=== PATIENT | female | born 2000 | race American Indian/Alaskan Native ===

== ENCOUNTER 2023-06-09 19:44 | Emergency (ER) | payer SELFPAY ==
--- OUTSIDE RECORDS SUMMARY | 2023-06-09 19:46 | XMS REPORT | Continuity of Care Document ---
:2000 Author Organization [facility] t Address [address] [place] [address] [place] [address] Care Team Providers Name Role Phone PCP, PATIENT DOES NOT HAVE A Primary Care Physician Unavaila GARO Morillo Attending Clinician Unavailable ELIZABETH PICHARDO Attending Clinician Unavailable MONA MANN Attending Clinician Unavailable MICHAEL BROWN Attending Clinician Unavailable UZMA SPRINGER Attending Clinician Unavailable PRASHANT UNDERWOOD Attending Clinician Unavailable DEV BADILLO Attending Clinician Unavailable West WILLIAMSON Jairo S Attending Clinician JAIRO DODSON S Attending Clinician Unavailable JOON BARONE Attending Clinician Unavailable ANAND JEFFERSON Attending Clinician Unavailable Anand Jefferson RN Attending Clinician Merle Myles Attending Clinician GEORGIANA ALVARADO Attending Clinician Unavailable GARO WYNN Admitting Clinician Unavailable ELIZABETH PICHARDO Admitting Clinician Unavailable MICHAEL BROWN Admitting Clinician Unavailable DEV BADILLO Admitting Clinician Unavailable NIKHIL DODSONYA S Admitting Clinician Unavailable MERLE ROB Admitting Clinician Unavailable Payers Payer Name Policy Type Policy Number Effective Date Expiration Date S ource Self Pay P [id number] 2020 00:00:00 Problems Condition Condition Condition Status Onset Resolution Last Treating Co mments Source Name Details Category Date Date Treatment Clinician Date No known No known Disease Unive rs active active ity of problems problems [facility] Allergies, Adverse Reactions, Alerts Allergy Allergy Status Severity Reaction(s) Onset Inactive Treating Comm ents Source Name Type Date Date Clinician NO KNOWN Drug Active Univers ALLERGIE Class ity of S [facility] Family History Family Member Diagnosis Comments Start Date Stop Date Source Maternal grandfather Diabetes [facility] Paternal grandmother Hypertension [facility] Social History Social Habit Start Date Stop Date Quantity Comments Source Sexual [facility] Exposure to Not sure University SARS-CoV-2 (event) [facility] Alcohol intake 2021-02-25 2021-02-25 Current Taoism 00:00:00 00:00:00 non-drinker of Hospital alcohol (finding) History of Social 2021-02-25 2021-02-[address] function 00:00:00 00:00:00 Hospital Tobacco use and 2018-11-07 2018-11-07 Smokeless Taoism exposure 00:00:00 00:00:00 tobacco non-user Hospital Sex Assigned At [birth year] Tao[facility] 00:00:00 00:00:00 Hospital Smoking Status Start Date Stop Date Source Unknown if [facility] Never smoked tobacco [facility] Medications Ordered Filled Start Stop Current Ordering Indication Dosage Frequency Signature Comments Components Source Medication Medication Date Date Medication? Clinician (SIG) Name Name Nitrofurant 2020-08 Yes [id number] 100mg Take 1 Univers oin&Nit. 2-28 capsule by ity o f [place] 00:00: mouth 2 [place] (MACROBID) 00 (two) Medical 100 mg times Branch capsule daily. meloxicam Yes 15mg Q24H Take 1 Method i (MOBIC) 15 4-16 tablet (15 st mg tablet 00:00: mg total) Hos jeni 00 by mouth l daily as needed for moderate pain. Vital Signs Vital Name Observation Time Observation Value Comments Source Systolic blood 2021-08-06 03:47:00 109 mm[Hg] Univer sity of pressure [facility] Diastolic blood 2021-08-06 03:47:00 71 mm[Hg] Unive rsity of [facility] Branch Heart rate 2021-08-06 03:47:00 76 /min [facility] Respiratory rate 2021-08-06 03:47:00 16 /min [facility] Oxygen saturation in 2021-08-06 03:47:00 100 /min [facility] Arterial blood by [facility] Pulse oximetry Branch Body temperature 2021-08-05 23:33:00 37.11 Esther [facility] Body weight 2021-08-05 23:33:00 80.74 kg [facility] Procedures Procedure Date / Time Performing Clinician Source Performed ABORH CONFIRMATION (LAB 2021-08-06 03:09:00 Jairo Dodson [facility] ONLY) [facility] URINALYSIS 2021-08-06 02:03:00 Jairo Dodson [facility] COMP. METABOLIC PANEL 2021-08-06 01:57:00 Jairo Dodson [facility] ([id number]) [facility] TOTAL BETA HCG ASSAY 2021-08-06 01:57:00 Jairo Dodson [facility] CBC WITH DIFF 2021-08-06 01:57:00 Jairo Dodson [facility] HB ABO GROUPING 2021-08-06 01:57:00 Jairo Dodson [facility] US FIRST 2021-08-06 01:34:58 Jairo Dodson [facility] TRIMESTER LESS THAN 14 Medical B ranch WEEKS CONSENT/REFUSAL FOR 2021-08-05 23:31:53 [facility], [facility] NOTICE OF PRIVACY 2021-08-05 23:31:10 Doctor Unassigned, No Univ [facility] PRACTICES Name [facility] Plan of Care Planned Activity Planned Date Details Comments Source Future Scheduled 2023-06-05 Screening for [facility] Test 00:32:11 Chlamydia trachomatis (procedure) [code = 000612423] Future Scheduled 2023-06-05 INFLUENZA VACCINE [facility] Test 00:32:11 (#1) [code = INFLUENZA VACCINE (#1)] Future Scheduled 2023-06-05 COVID-19 VACCINE (#1) [facility] Test 00:32:11 [code = COVID-19 VACCINE (#1)] Future Scheduled 2023-06-05 Hepatitis C screening [facility] Test 00:32:11 (procedure) [code = 470061936] Encounters Start End Encounter Admission Attending Care Care Encounter Source Date/Time Date/Time Type Type Clinicians Facility Department ID 2022-07-24 Outpatient D Julián [id number] [place] 07:38:23 [id number] [facility] 2022-07-20 Outpatient D D [id number] 09:03:19 [id number] [facility] 2021-11-17 Outpatient [facility] [id number] [place] 05:08:49 [facility] 2021-05-25 Outpatient [facility] [id number] [place] 11:31:37 [id number] [facility] 2021-05-25 Outpatient [facility] [id number] [place] 11:31:21 [id number] [facility] 2023-02-11 2023-02-11 Outpatient CARRI-SA D D [id number] [place] 10:10:29 [facility]23[facility] 2022[facility]18 Outpatient KYLEE Julián D [id number] [place] 11:31:00 14:33:02 ELIZABETH [facility] 2022-10-21 2022-10-21 Outpatient JOHNATHAN Julián D [id number] [place] 00:00:00 00:00:00 MONA [facility] 2022-07-24 2022-07-24 Outpatient STEPHANIE Julián D [id number] [place] 05:38:37 05:38:37 MICHAEL [facility] 2022-07-20 2022-07-20 Outpatient RACHEAL Julián D [id number] [place] 07:01:52 07:01:52 UZMA [facility] 2022-07-20 2022-07-20 Outpatient D D [id number] [place] 00:00:00 00:00:00 [facility] 2021-10-24 2021-10-24 Outpatient KJ Julián D [id number] [place] 00:00:00 00:00:00 PRASHANT [facility] 2021-08-06 2021-08-06 Outpatient CRYSTAL BADILLO Julián [id number] [place] 00:00:00 00:00:00 [facility] 2021-08-05 2021-08-05 [facility] [id number] Univers 17:35:00 21:56:00 Jairo Dove [place] [id number] i [facility] [id number] [facility] [id number] 2021-08-05 2021-08-05 Emergency [facility] [id number] Univers 17:35:00 21:56:00 JAIRO arango [facility] 2021-02-25 2021-02-25 Outpatient LIZABETH [facility] [id number] [place] 00:00:00 00:00:[address] 2021-02-25 2021-02-25 Outpatient LIZABETH [facility] [id number] [place] 00:00:00 00:00:[address] 2021-02-19 2021-02-19 Outpatient ANAND JEFFERSON Julián D [id number] [place] 07:23:16 10:22:56 [facility] 2021-02-19 2021-02-19 Office LiAnand [facility] [id number] 09:23:16 09:38:16 Visit MARTHA [id number] .[id number] 2021-02-03 2021-02-03 Outpatient CRYSTAL Julián [id number] [place] 00:00:00 00:00:00 [facility] 2021-01-29 2021-01-29 Office DEEPA Rob [id number] 11:36:23 12:06:23 Visit Merle THOMAS [id number] .[id number] 2021-01-29 2021-01-29 Outpatient CRYSTAL ROB Julián [id number] [place] 09:36:23 09:36:23 MERLE Canales Depart ent 2021-01-29 2021-01-29 Telemedici Alden DEEPA [id number] 08:22:26 08:52:26 ne Visit Dev THOMAS [id number] .[id number] 2021-01-29 2021-01-29 Outpatient CRYSTAL BADILLO [facility] [id number] [place] 06:22:26 06:22:26 [facility] 2020-11-22 2020-11-22 Outpatient LIZABETH [facility] [id number] [place] 00:00:00 00:00:[address] 2020-11-22 2020-11-22 Outpatient JOON BARONE [facility] [id number] [place] 00:00:00 00:00:[address] 2020-10-01 2020-10-01 Emergency [facility] [id number] [place] 00:00:00 00:00:00 GEORGIANA [address] Results Test Description Test Time Test Comments Results Result Comments Source TOTAL [facility] 2021-08-06 03:30:14 Test Item Value Reference Range Interpretation Comme nts BETA HCG (test code = See_Comment [Auto mated message] The [id number]) system which ge nerated this result transmit freida reference range : Non- fe male and male patients: <5 mIU/mL. The reference r armin was not used to interpr et this result as charles l/abnormal. ROMEO (test code = ROMEO) Gestational Age ?Range (mIU/mL) 1-10 ?Weeks ?[id number] Weeks ?29431-35822411-70 Weeks ?4431-39566741-31 Weeks ?5461-915490 Biotin has been reported to cause a negative bias, interpret results relative to patient's use of biotin. [facility] Only[facility]2021-08-06 03:26:14 Test Item Value Reference Range Interpretation Comments ABO & RH (test code O Positive Performe d at [facility] = 20) Laboratory Serv [facility] [address] [place] [id number] Free: [phone] A No. [id number] [facility]. METABOLIC PANEL (51469)2021-08-06 02:49:57 Test Item Value Reference Range Interpretation Comments NA (test code = 136 mmol/L 135-145 2187434525) K (test code = 4.0 mmol/L 3.5-5.0 0811679464) CL (test code = 100 mmol/L 98-108 6247345466) CO2 TOTAL (test code = 26 mmol/L 23-31 2066567127) AGAP (test code = 2-16 9781939199) BUN (test code = 6 mg/dL 7-23 L 3213326773) GLUCOSE (test code = 114 mg/dL 70-110 H 1324998680) CREATININE (test code = 0.53 mg/dL 0.50-1.04 3958533802) TOTAL BILI (test code = 0.3 mg/dL 0.1-1.4 9532549376) CALCIUM (test code = 9.0 mg/dL 8.6-10.6 5648976111) T PROTEIN (test code = 7.6 g/dL 6.3-8.2 3160195613) ALBUMIN (test code = 4.3 g/dL 3.5-5.0 3579256627) ALK PHOS (test code = 74 U/L 34-122 4775697525) ALTv (test code = 15 U/L 5-35 1742-6) AST(SGOT) (test code = 25 U/L 13-40 1819938873) eGFR (test code = mL/min/1.73m2 6521611555) ROMEO (test code = ROMEO) Association of Glomerular Filtration Rate (GFR) and Staging of Kidney Disease* + --+ --+ ------+| GFR (mL/min/1.73 m2) ?| With Kidney Damage ?| ?Without Kidney Damage+ --------+ --------+ +| ?>90 ?| ?Stage one ?| ? Normal ?+ ---+ ---+ -------+| ?60-89 ?| ?Stage two ?| ? Decreased GFR ? + --+ --+ ------+| ?30-59 ?| ?Stage three ?| ? Stage three ? + --+ --+ ------+| ?15-29 ?| ?Stage four ? | ? Stage four ?+ ---+ ---+ -------+| ?<15 (or dialysis) ? ?| ?Stage five ? | ? Stage five ?+ ---+ ---+ -------+ *Each stage assumes the associated GFR level has been in effect for at least three months. ?Stages 1 to 5, with or without kidney disease, indicate chronic kidney disease. Notes: Determination of stages one and two (with eGFR >59mL/min/1.73 m2) requires estimation of kidney damage for at least three months as defined by structural or functional abnormalities of the kidney, manifested by either:Pathological abnormalities or Markers of kidney damage (including abnormalities in the composition of the blood or urine or abnormalities in imaging tests). Lab Interpretation Abnormal (test code = 14326-1) [facility] and Screen - ONCE [id number] 02:40:13 Test Item Value Reference Range Interpretation Comments ABO & RH (test code O Positive Performe d at [facility] = 20) Laboratory Serv [facility] [place] [address] Free: [phone] A No. [id number] IAT (test code = Negative Performed a t [facility] 1185) Laboratory Serv [facility] [place] [address] Free: [phone] A No. [id number] [facility] CenterCBC WITH [id number] 02:13:34 Test Item Value Reference Range Interpretation Comments WBC (test code = See_Comment [Automated 9280-2) message] The sy stem which generated this result transmitted reference range : 4.50 - 13.50 10*3/?L. The reference range was not used to interpret this result as normal/abnormal . RBC (test code = See_Comment [Automated 384-5) message] The sy stem which generated this result transmitted reference range : 4.10 - 5.10 10*6/?L. The reference range was not used to interpret this result as normal/abnormal . HGB (test code = 13.4 g/dL 12.0-16.0 718-7) HCT (test code = 38.6 % 36.0-45.0 4544-3) MCV (test code = 85.6 fL 78.0-95.0 787-2) MCH (test code = 29.7 pg 26.0-32.0 785-6) MCHC (test code = 34.7 g/dL 32.0-36.0 786-4) RDW-SD (test code = 38.1 fL 38.5-49.0 L 89683-0) RDW-CV (test code = 12.2 % 11.5-14.0 788-0) PLT (test code = See_Comment [Automated 777-3) message] The sy stem which generated this result transmitted reference range : 135 - 361 10*3/ ?L. The reference r armin was not used to interpret this result as normal/abnormal . MPV (test code = 10.2 fL 9.4-13.3 72112-1) NRBC/100 WBC (test See_Comment [Automat ed code = 2450527225) message] The system which generated this result transmitted reference range : 0.0 - 10.0 /100 WBCs. The refer ence range was not u sed to interpret th is result as normal/abnormal . NRBC x10^3 (test code <0.01 See_Comment [Auto mated = 8736345879) message] The s ystem which generated this result transmitted reference range : 10*3/?L. The reference range was not used to interpret this result as normal/abnormal . GRAN MAT (NEUT) % 64.0 % (test code = 770-8) IMM GRAN % (test code 0.60 % = 7961175758) LYMPH % (test code = 23.9 % 736-9) MONO % (test code = 6.4 % 5905-5) EOS % (test code = 4.5 % 713-8) BASO % (test code = 0.6 % 706-2) GRAN MAT x10^3(ANC) 8.02 10*3/uL 1.50-10.30 (test code = 9660803655) IMM GRAN x10^3 (test 0.07 10*3/uL 0.00-0.06 H code = 0557346927) LYMPH x10^3 (test code 2.99 10*3/uL 0.70-7.40 = 731-0) MONO x10^3 (test code 0.80 10*3/uL 0.00-0.50 H = 742-7) EOS x10^3 (test code = 0.56 10*3/uL 0.00-0.40 H 711-2) BASO x10^3 (test code 0.08 10*3/uL 0.00-0.10 = 704-7) Lab Interpretation Abnormal (test code = 40820-6) [facility]"
[2023-06-09 21:13] LABS: Urine Bacteria None Seen /HPF (<20); Urine Bilirubin NEGATIVE (Negative); Urine Blood Negative (Negative); Urine Clarity Turbid (Clear); Urine Color Light-Yellow (Yellow); Urine Glucose NEGATIVE (Negative); Urine Mucus Slight /HPF (None Seen); Urine Protein TRACE (Negative); Urine RBC <5 /HPF (None Seen); Urine Urobilinogen Normal (Normal)
--- NOTE | 2023-06-09 22:05 | ER ---
Nurse's Notes [facility] Name: Meg Dobson Age: 22 yrs Sex: Female : 2000 Arrival Date: 06/09/2023 Time: 19:44 Bed 12 Private MD: Diagnosis: Rash and other nonspecific skin eruption;Vaginal discharge Presentation: 06/09 20:13 Chief complaint: Patient states: I have a rash that started under my breast and now I ha1 have it in other parts of my body including my vaginal area. Also, I have a vaginal discharge. Coronavirus screen: Vaccine status: Patient reports being unvaccinated. Ebola Screen: No symptoms or risks identified at this time. Initial Sepsis Screen: Does the patient meet any 2 criteria? No. Patient's initial sepsis screen is negative. Does the patient have a suspected source of infection? No. Patient's initial sepsis screen is negative. Risk Assessment: Do you want to hurt yourself or someone else? Patient reports no desire to harm self or others. Onset of symptoms was May 23, 2023. 20:13 Method Of Arrival: Ambulatory ha1 20:13 Acuity: JENNIFER 4 ha1 Triage Assessment: 20:19 General: Appears comfortable, Behavior is calm, cooperative. Pain: Denies pain. Neuro: ha1 Level of Consciousness is awake, alert, obeys commands, Oriented to person, place, time, situation. Cardiovascular: Patient's skin is warm and dry. Respiratory: Airway is patent Respiratory effort is even, unlabored, Respiratory pattern is regular, symmetrical. : Reports vaginal itching. Derm: Skin is pink, warm \T\ dry. 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 - Social history:: Smoking status: Patient denies any tobacco usage or history of. Screenin:49 [facility] ED Fall Risk Assessment (Adult) History of falling in the last 3 months, ap3 including since admission No falls in past 3 months (0 pts). Abuse screen: Denies threats or abuse. Nutritional screening: No deficits noted. Tuberculosis screening: No symptoms or risk factors identified. Assessment: 20:48 General: Appears in no apparent distress. Behavior is calm, cooperative, appropriate ap3 for age. Pain: Complains of pain in groin. Neuro: Level of Consciousness is awake, alert, obeys commands, Oriented to person, place, time, situation. Cardiovascular: Patient's skin is warm and dry. Respiratory: Airway is patent Respiratory effort is even, unlabored, Respiratory pattern is regular, symmetrical. : Reports discharge, from vagina that is. Vital Signs: 20:13 BP 126 / 81; Pulse 82; Resp 17 S; Temp 98.2; Pulse Ox 100% on R/A; Weight 87.09 kg; ha1 Height 5 ft. 2 in. ; 20:13 Body Mass Index 35.12 (87.09 kg, 157.48 cm) ha1 ED Course: 19:48 Patient arrived in ED. ag3 19:57 Lorenza Cary FNP-C is [facility]. kb 19:57 Sherwin Gonzales MD is Attending Physician. kb 20:19 Triage completed. ha1 20:19 Arm band placed on right wrist. ha1 20:37 Arelis Bob, HAYLEY is Primary Nurse. ap3 20:43 Urine collected: clean catch specimen, clear. ap3 20:50 Patient has correct armband on for positive identification. Bed in low position. Call ap3 light in reach. Side rails up X 1. Adult w/ patient. Pulse ox on. NIBP on. 21:33 GC (Dax/Chl) Probe CX/URE (Do not order if pt is under 13, order Culture instead) Sent. ap3 21:33 Wet Prep Sent. ap3 21:33 Assist provider with pelvic exam: Set up pelvic tray. Performed by Lorenza Cary 3 ANNABEL Specimens sent to lab. Patient tolerated well. Administered Medications: No medications were administered Medication: 21:33 VIS not applicable for this client. ap3 Outcome: 22:04 Discharge ordered by . kb 22:14 Discharged to home with family, spoke with provider left prior to signing discharge kl instructions 22:14 Condition: unchanged 22:14 Discharge instructions given to patient, 22:15 Patient left the ED. kl Signatures: Lorenza Cary FNP-C FNP-Steffany Valles RN RN Arelis Bob RN RN 3 Anila Sands ag3 Sandoval, Marian, RN RN ha1
--- NOTE | 2023-06-09 22:05 | EDPHYS ---
Physician Documentation [facility] Name: Meg Dobson Age: 22 yrs Sex: Female : 2000 Arrival Date: 06/09/2023 Time: 19:44 Bed 12 Private MD: ED Physician Sherwin Gonzales HPI: 06/10 00:19 This 22 yrs old Female presents to ER via Ambulatory with complaints of Vaginal kb Discharge, Rash. 00:19 Patient is a 22-year-old female who presents for a rash that started 3 weeks ago to kb torso and vaginal discharge that started 1 week ago. States she has tried ringworm medication for the rash but it persists.. 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 - Social history:: Smoking status: Patient denies any tobacco usage or history of. ROS: 23:50 Constitutional: Negative for fever, chills, and weight loss, kb 23:50 : Positive for vaginal discharge, 23:50 Skin: Positive for rash, of the chest, abdomen, right axilla and left axilla, 23:50 All other systems are negative, Exam: 06/10 00:17 Constitutional: This is a well developed, well nourished patient who is awake, alert, kb and in no acute distress. Head/Face: Normocephalic, atraumatic. ENT: Moist Mucous membranes Cardiovascular: Regular rate Respiratory: Respirations even and unlabored. No increased work of breathing. Talking in full sentences Abdomen/GI: Soft, non-tender. No distention MS/ Extremity: Pulses equal, no cyanosis. Neurovascular intact. Full, normal range of motion. Neuro: Awake and alert, GCS 15, oriented to person, place, time, and situation. Moves all extremities. Normal gait. : Pelvic Exam: External exam: is normal, Speculum exam: no cervicitis, os that is closed, discharge, yellow, the nurse was present for the exam, Skin: Small areas that appear to be dry skin noted under breast, axillas and abdomen., Vital Signs: 06/09 20:13 BP 126 / 81; Pulse 82; Resp 17 S; Temp 98.2; Pulse Ox 100% on R/A; Weight 87.09 kg; ha1 Height 5 ft. 2 in. ; 20:13 Body Mass Index 35.12 (87.09 kg, 157.48 cm) ha1 MDM: 19:59 Patient medically screened. kb 06/10 00:18 Differential diagnosis: urinary tract infection, vaginosis, STI. Data reviewed: vital kb signs, nurses notes. Counseling: I had a detailed discussion with the patient and/or guardian regarding the historical points, exam findings, and any diagnostic results supporting the discharge/admit diagnosis, lab results, the need for outpatient follow up, an OB/Gyne specialist, to return to the emergency department if symptoms worsen or persist or if there are any questions or concerns that arise at home. ED course: Patient reports no possibility of STI. States she has 1 sexual partner and always uses a condom. We will forego antibiotics until gonorrhea and Chlamydia test returned. Patient will check portal for results. 06/09 20:16 Order name: Test, Urine; Complete Time: 21:15 kb 06/09 20:16 Order name: Urinalysis w/ reflexes; Complete Time: 21:15 kb 06/09 21:15 Order name: Wet Prep; Complete Time: 22:04 kb 06/09 21:15 Order name: GC (Dax/Chl) Probe CX/URE (Do not order if pt is under 13, order Culture kb instead) Administered Medications: No medications were administered Disposition Summary: 06/09/23 22:04 Discharge Ordered Notes: Location: Home kb Condition: Stable kb Diagnosis - Rash and other nonspecific skin eruption kb - Vaginal discharge kb Followup: kb - With: Emergency Department - When: As needed - Reason: Worsening of condition Followup: kb - With: Private Physician - When: 2 - 3 days - Reason: Recheck today's complaints, Continuance of care, Re-evaluation by your physician Discharge Instructions: - Discharge Summary Sheet kb - Rash, Adult, [id number] kb Forms: - Medication Reconciliation Form kb - Thank You Letter kb - Antibiotic Education kb - Prescription Opioid Use kb - Patient Portal Instructions kb - Leadership Thank You Letter kb Prescriptions: - mupirocin 2 % Topical ointment - apply 1 application TOPICAL route 2 times per day; 1 unit; Refills: 0, Product kb Selection Permitted Addendum: 06/14/2023 10:08 I was immediately available for consultation during this patient's visit. I did not e c2 personally see the patient or guide the patient's care.. Signatures: Dispatcher [employer] Lorenza Ling FNP-C FNP-Ckb Ayala, Heidy RN RN ha1 Sherwin Gonzales MD MD ec2
[2023-06-09 22:38] VITALS: BP 126/81; TEMP 98.2; O2SAT 100
[2023-06-13 18:04] LABS: C.trachomatis RNA,TMA Detected (Not Detected)
== END 2023-06-09 22:15 | disposition home or self-care (01) ==
LOC: ER 19:44
DX: R21 Rash and other nonspecific skin eruption (principal); N89.8 Other specified noninflammatory disorders of vagina
CPT/HCPCS: 81001; 81025; 87210; 87490; 87590; 99284